=== PATIENT | female | born 1965 | race African-American/Black ===

== ENCOUNTER 2023-04-24 10:47 | Emergency (ER) | payer MEDICAID ==
[~2023-04-24] VITALS: Ht 162.6 cm; Wt 73.0 kg
[2023-04-24 10:53] VITALS: O2SAT 100
[2023-04-24] MEDS: METHOCARBAMOL 500MG TABLET PO ONE (12:11)
[2023-04-24] MEDS: KETOROLAC 60MG/2ML VIAL IM ONE (12:11)
[2023-04-24] MEDS ORDERED: METH-653 MT (13:36)
[2023-04-24 13:59] VITALS: BP 128/80; PULSE 76; RESP 16; TEMP 98.2
== END 2023-04-24 14:00 | disposition home or self-care (01) ==
LOC: ER 10:47
DX: M54.2 Cervicalgia (principal); R07.89 Other chest pain; R51.9 Headache, unspecified; V49.9XXA Car occupant (driver) (passenger) injured in unspecified traffic accident, initial encounter; Y93.89 Activity, other specified; Y92.89 Other specified places as the place of occurrence of the external cause; Y99.8 Other external cause status
CPT/HCPCS: 99284; 73090; 73030; 73060; 73080; 93005; 96372; J1885